=== PATIENT | female | born 1940 | race Caucasian/White ===

== ENCOUNTER 2019-09-20 19:41 | Emergency (ER) | payer MEDICARE, SELFPAY | END 2019-09-20 22:17 | disposition home or self-care (01) | PROVIDERS: Emergency Provider Emergency Medicine; Family Provider Nurse Practitioner; Visit Provider Emergency Medicine | DX: S02.85XA Fracture of orbit, unspecified, initial encounter for closed fracture (principal); W19.XXXA Unspecified fall, initial encounter; Y92.009 Unspecified place in unspecified non-institutional (private) residence as the place of occurrence of the external cause; I10 Essential (primary) hypertension; Z86.73 Personal history of transient ischemic attack (TIA), and cerebral infarction without residual deficits | CPT/HCPCS: 70450; 70486; 72125; 99283 ==

== ENCOUNTER → 2019-10-13 15:55 | Outpatient (BNVA) | payer MEDICARE, SELFPAY | PROVIDERS: Family Provider Nurse Practitioner; PCP Nurse Practitioner; Visit Provider Nurse Practitioner | DX: F43.23 Adjustment disorder with mixed anxiety and depressed mood (principal); R05 Cough; I83.93 Asymptomatic varicose veins of bilateral lower extremities; J01.90 Acute sinusitis, unspecified | CPT/HCPCS: 87804 ==

== ENCOUNTER 2021-01-14 08:47 | Emergency (ER) | payer MEDICARE, SELFPAY ==
[2021-01-14 08:54] VITALS: BP 210/113; PULSE 108; RESP 18; TEMP 36.8; O2SAT 98; BMI 28.3
--- NOTE | 2021-01-14 09:04 | W.ED.HEATRA ---
HPI - Head Injury General: Chief complaint: Wound/Laceration Stated complaint: HEAD LAC S/P FALL Time Seen by Provider: 01/14/21 08:49 History of Present Illness: HPI Narrative: 80-year-old female states that she was walking into [facility] with her hands full. She went to open the door and fell backwards. She denies any lightheadedness or dizziness. She fell on the concrete. She denies any blurry vision. She states the pain is a 1/10. She denies any nausea vomiting. No pain or burning with urination. No diarrhea or constipation. No abdominal pain. No symptoms leading up to this fall. This occurred at approximately 7:50 AM. MD Complaint: head injury and fall Onset (ago): hour(s) (This occurred at 7:50 AM.) Mechanism of Injury: fall Place: other ([facility]) Loss of Consciousness: no Location of injury: occipital Severity: mild Severity scale (1-10): 1 Quality: sharp Radiation: none Other Injuries: none Associated symptoms: Reports no associated symptoms and other; Deny amnesia, confusion, nausea, neck pain, numbness, tingling, vertigo, visual changes, vomiting or weakness Review of Systems Const: Denies: fever(s), chills, body aches, change in appetite or diaphoresis Eyes: Denies: change in vision or blurry vision Card: Denies: chest pain Resp: Denies: dyspnea GI: Denies: abdominal pain, nausea or vomiting : Denies: difficulty voiding or dysuria Musc: Denies: neck pain or back pain Skin/Breast: Reports: new lesions (Bleeding from the back of the scalp.) and other Neuro: Reports: headache(s) (Current chief complaint of head injury secondary to fall.) and frequent falls (Patient states she has fallen on a number of occasions. 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 Uncontrolled hypertension Varicose veins of legs Surgical History History of cataract surgery right eye : 01/2018 History of varicose vein ligation and stripping bilateral 5 different procedures Family History Mother Diabetes Heart disease Brother Diabetes Heart disease Cancer colon Social History Smoking and tobacco status: never smoked Smoking risk assessment/counseling performed?: No Alcohol intake: never Desire information about alcohol rehabilitation?: No Counseling given: No Desire information about substance/drug rehabilitation?: No Counseling given: No Adopted: No Caregiver/support person: No Lives independently: Yes Household members: spouse Housing: House Marital status: Number of children: 2 service: No Current occupational status: unemployed and retired Pets and animals: Yes Pets & animals: dog(s) History of recent travel: No Current gender identity: Female Physical Exam Narrative: EXAM NARRATIVE: 80-year-old female appears in no acute distress. She fell backwards and has bleeding to the back of her head. Const: COMMON NORMALS: no acute distress, patient oriented x3, no limitations, healthy appearing, alert and well nourished GENERAL APPEARANCE: cooperative, comfortable, well kempt and well developed HENMT: FACE & SINUS: normal facial exam Eye: COMMON NORMALS: EOMs intact bilaterally Neck/C-Spine: COMMON NORMALS: full ROM, supple, no meningeal signs and no JVD GENERAL: Yes normal visual inspection, Yes trachea midline, No anterior neck swelling and No tender Resp: COMMON NORMALS: normal respiratory effort, No retractions, No use of accessory muscles and clear to auscultation bilaterally EFFORT & INSPECTION: Yes able to speak in complete sentences, Yes symmetric chest movement and No respiratory distress AUSCULTATION: clear to auscultation bilaterally Cardio: COMMON NORMALS: no JVD, regular rate, regular rhythm and Peripheral pulses 2+ throughout RATE: regular rate RHYTHM: regular rhythm HEART SOUNDS: Murmur heart sound present PERIPHERAL PULSES: Peripheral pulses 2+ throughout Neuro: COMMON NORMALS: patient oriented x3 SENSORIUM/ORIENTATION: Yes alert MENINGEAL SIGNS: Yes no meningeal signs Psych: APPEARANCE: Yes well kempt Skin: SKIN IMAGES (FEMALE): 1. Scalp abrasion with small punctate lesion with minimal bleeding noted. TRAUMA: abrasion and puncture Course Vital Signs: Vital signs: Vital Signs Temperature 98.2 F 01/14/21 08:54 Pulse Rate 93 01/14/21 11:06 Respiratory Rate 18 01/14/21 11:06 Blood Pressure 162/89 01/14/21 11:06 Pulse Oximetry 95 01/14/21 11:06 Discharge Plan Discharge Patient Disposition: Home Clinical Impression: Uncontrolled hypertension, Abrasion Head injury Qualifiers: Encounter type: initial encounter Qualified Code(s): S09.90XA - Unspecified injury of head, initial encounter Condition: Stable Prescriptions: No Action aspirin [Adult Low Dose Aspirin] 81 mg tablet,delayed release (DR/EC) 81 mg PO QDAY RF: 0 guaifenesin [Tussin] 400 mg tablet 400 mg PO TID PRN (Reason: cough) Qty: 20 RF: 0 amlodipine 5 mg tablet 5 mg PO QDAY Qty: 30 RF: 2 escitalopram oxalate [Lexapro] 10 mg tablet 10 mg PO QDAY Qty: 30 RF: 2 Discharge Orders: Discharge ED (Routine); Ordered 01/14/21 Ordered By: Tesfaye Tijerina Referrals: Roselyn Jo, TRANSPORT CONDUCTOR-C [Primary Care Provider] - Discharge Diet: Advance as tolerated Discharge Activity: Limit activity as instructed Patient Instructions: Opioid Safety Activity Restrictions/Additional Instructions: Please have your family monitor you for head injury precautions over the next 24 hours. If there are any significant changes you need to return to the ER immediately. Coding Level of Care Code ED Scrap Sorter for Dontae Fwrosmery Exam Detailed
[2021-01-14 10:09] VITALS: BP 179/99
[2021-01-14] MEDS: cloNIDine 0.1 mg Tablet PO (10:09)
[2021-01-14 11:06] VITALS: BP 162/89; PULSE 93; RESP 18; O2SAT 95
== END 2021-01-14 11:10 | disposition home or self-care (01) ==
PROVIDERS: Emergency Provider Emergency Medicine; PCP Nurse Practitioner
DX: S00.01XA Abrasion of scalp, initial encounter (principal); W19.XXXA Unspecified fall, initial encounter; Z79.82 Long term (current) use of aspirin; Z86.73 Personal history of transient ischemic attack (TIA), and cerebral infarction without residual deficits; E78.2 Mixed hyperlipidemia; I10 Essential (primary) hypertension
CPT/HCPCS: 99282

== ENCOUNTER 2022-02-21 03:14 | Emergency (ER) | payer MEDICARE, SELFPAY ==
--- NOTE | 2022-02-21 03:19 | XRR_ITS ---
PROCEDURE INFORMATION: Exam: XR Chest Exam date and time: 02/21/2022 3:56 AM Age: 81 years old Clinical indication: Other: Poss CVA; Patient HX: Patient found unresponsive at home. Patient flaccid to RT upper/ower extremity. Aphasic. Hypertensive per EMS. Bruise to left orbit. Last known well time around 0100. ; Additional info: AMS TECHNIQUE: Imaging protocol: XR of the chest. Views: 1 view. COMPARISON: CR Chest 1 [place] [id number] 05/15/2019 12:09 PM FINDINGS: Lungs: Mild interstitial pulmonary edema. Pleural spaces: Unremarkable. No pleural effusion. No pneumothorax. Heart/Mediastinum: Cardiomegaly. Bones/joints: Unremarkable. XR/XR chest 1V portable [id number] IMPRESSION: Cardiomegaly with mild interstitial pulmonary edema.
--- NOTE | 2022-02-21 03:19 | CTR_ITS ---
PROCEDURE INFORMATION: Exam: CT Head Without Contrast Exam date and time: 02/21/2022 3:20 AM Age: 81 years old Clinical indication: Stroke-like symptoms; Speech disturbance; RT upper extremity and RT lower extremity weakness; Additional info: Patient found unresponsive at home. Patient flaccid to RT upper/ower extremity. Aphasic. Hypertensive per EMS. Bruise to left orbit. TECHNIQUE: Imaging protocol: Computed tomography of the head without contrast. Radiation optimization: All CT scans at this facility use at least one of these dose optimization techniques: automated exposure control; mA and/or kV adjustment per patient size (includes targeted exams where dose is matched to clinical indication); or iterative reconstruction. Other technique: STROKE PROTOCOL was implemented. COMPARISON: CT head wo con* [id number] 09/20/2019 8:54 PM RADIATION DOSE METRICS: Total DLP (mGy-cm): 1016.52 FINDINGS: Brain: There is mild parenchymal atrophy and chronic small vessel disease. There is encephalomalacia in the jude from an old lacunar infarct. Old right basal ganglia lacunar infarct. Cerebral ventricles: No ventriculomegaly. Paranasal sinuses: Paranasal sinuses are clear. No air-fluid level. Mastoid air cells: Visualized mastoid air cells are clear. Bones/joints: Unremarkable. No acute fracture. Soft tissues: Unremarkable. Other findings: No acute infarct or hemorrhage. CT/CT head wo con* [id number] IMPRESSION: 1. No acute infarct or hemorrhage. 2. Mild parenchymal atrophy and chronic small vessel disease. ASSESSMENT: ASPECTS ([place] Stroke Program Early CT Score) is 10.
--- NOTE | 2022-02-21 03:19 | ECG_ITS ---
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 Measurements Intervals [place] Rate: 123 P: FL: QRS: 64 QRSD: 90 T: 159 QT: 299 QTc: 428 Interpretive Statements ATRIAL FIBRILLATION WITH RAPID VENTRICULAR RESPONSE VOLTAGE CRITERIA FOR LVH [MEETS CRITERIA IN ONE OF: R(aVL), S(V1), R(V5), R(V5/V6)+S(V1)] ST DEVIATION AND MODERATE T-WAVE ABNORMALITY, CONSIDER LATERAL ISCHEMIA [-0.1+ mV T-WAVE IN I/aVL/V5/V6] Compared to ECG 05/15/2019 19:05:16 Left ventricular hypertrophy now present Sinus rhythm no longer present First degree AV block no longer present T-wave abnormality still present Possible ischemia still present Electronically Signed On 02-21-2022 17:12:58 CDT by Adam Yan M.D. [id number]
[2022-02-21 03:20] VITALS: BP 212/102; PULSE 88; RESP 18; TEMP 36.7; O2SAT 94; BMI 30.7
--- NOTE | 2022-02-21 03:20 | W.ED.NEUROSD ---
HPI - Neuro Symptoms/Deficit General: Chief Complaint: Neuro Symptoms/Deficit Stated Complaint: ams Time Seen by Provider: 02/21/22 03:18 Source: EMS Mode of arrival: EMS Limitations: altered mental status History of Present Illness: 81-year-old female here with EMS per EMS she woke up at 1 went to get out of bed and fell and hit her head patient has not been able to follow any commands since then. Here she does have her eyes open she seems to be flaccid on the right side we will move her left side she is not answering any questions not following any commands at all. Unsure when her last known normal was actually. She does have an abrasion to her left head. She is quite hypertensive. 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 Uncontrolled hypertension Varicose veins of legs Surgical History History of cataract surgery right eye : 01/2018 History of varicose vein ligation and stripping bilateral 5 different procedures Family History Mother Diabetes Heart disease Brother Diabetes Heart disease Cancer colon Social History Smoking and tobacco status: never smoked Smoking risk assessment/counseling performed?: No Alcohol intake: never Desire information about alcohol rehabilitation?: No Counseling given: No Desire information about substance/drug rehabilitation?: No Counseling given: No Adopted: No Caregiver/support person: No Lives independently: Yes Household members: spouse Housing: House Marital status: Number of children: 2 service: No Current occupational status: unemployed and retired Pets and animals: Yes Pets & animals: dog(s) History of recent travel: No Current gender identity: Female NIH stroke score NIHSS: Level Of Consciousness - 1a: 2 Level Of Consciousness Questions - 1b: Neither Correct Level Of Consciousness Commands - 1c: Neither Correct Best Gaze - 2: Normal Visual Burris - 3: No Visual Loss Facial Palsy - 4: Normal Motor Arm Right - 5: No Movement Motor Arm Left - 5: No Drift Motor Leg Right - 6: No Movement Motor Leg Left - 6: No Drift Limb Ataxia - 7: Absent Sensory - 8: Normal Best Language - 9: Mute; Global Aphasia Dysarthia - 10: Severe Dysarthia Extinction And Inattention - 11: 2 Score: Total Score: 21 Physical Exam Const: COMMON NORMALS: negative for patient oriented x3 EXAM LIMITATIONS: altered mental status GENERAL APPEARANCE: ill appearing HENMT: OTHER: abrasion to left forehead Eye: COMMON NORMALS: Equal, round and reactive pupils present and EOMs intact bilaterally PUPIL: Yes Equal, round and reactive pupils present Neck/C-Spine: COMMON NORMALS: full ROM and supple Chest: COMMONS NORMALS: normal inspection of the chest and normal palpation of entire chest wall Resp: COMMON NORMALS: normal respiratory effort, No retractions, No use of accessory muscles and clear to auscultation bilaterally AUSCULTATION: clear to auscultation bilaterally Cardio: COMMON NORMALS: regular rate, regular rhythm and No murmurs present (Cardio) RATE: regular rate RHYTHM: regular rhythm GI: COMMON NORMALS: Normal to inspection, nondistended, normoactive bowel sounds present, Soft to palpation, non-tender and no masses PALPATION: Yes Soft to palpation Extremity: COMMON NORMALS: normal to inspection and full ROM Neuro: COMMON NORMALS: negative for patient oriented x3 OTHER: Patient will not follow any commands right side is flaccid Psych: COMMON NORMALS: negative for mental status grossly normal Skin: COMMON NORMALS: no rashes or lesions noted and no wounds GENERAL SKIN EXAM: no rashes or lesions noted Course Reevaluation(s): Reevaluation #1: Patient has flaccidity to the right side along with altered mental status she is not able to can respond to any my questions and does not follow any commands I am unsure when her actual last known normal was from EMS reports she woke up at 1 and fell she had had a head injury. I have not been able to get a hold of any family at all tried calling and they have not arrived here. Time: 03:46 Reevaluation #2: I was able to speak to grandson who was at the house from his understanding his mother got up at 1 and fell and was unresponsive her last known normal per him he believes when she went to bed at roughly 8 PM he states that his grandpa is on his way here and he still has not arrived. Time: 03:51 Reevaluation #3: Patient's has arrived he states that they went to bed around 9:00 and he had woke up around 2 and found her on the floor last known normal was 9 PM 7 hours ago Time: 04:02 Vital Signs: Vital signs: Vital Signs Temperature 98.1 F 02/21/22 03:20 Pulse Rate 102 H 02/21/22 04:45 Respiratory Rate 18 02/21/22 04:45 Blood Pressure 180/135 02/21/22 04:45 Pulse Oximetry 95 02/21/22 04:45 MDM - Neuro Symptoms/Deficit Medical Decision Making 0405 patient's had a large stroke she does have an M1 occlusion I have called [facility] spoke to transfer and line up worker who is in get neurologist we will try to transfer there for possible clot retrieval as she is not a tPA candidate due to last known normal of 2100 Patient presents here with a very significant stroke with an NIH of [address] angio does show an M1 occlusion. She is not a tPA candidate as her last known normal was 9 PM and she also had a head injury from her fall she is no findings on her CT scan from the injury. She is in A. fib here is likely new onset she is not on any blood thinners. I did speak to neurologist at [facility] and will transfer there for higher level of care as patient could possibly still be a clot retrieval candidate. Did attempt to fly but they are not flying due to the weather will go by ground. Lab Data : 02/21/22 03:40 02/21/22 03:40 Radiology Impressions Chest X-Ray 02/21/22 03:19 IMPRESSION: Cardiomegaly with mild interstitial pulmonary edema. Head CT 02/21/22 03:19 IMPRESSION: 1. No acute infarct or hemorrhage. 2. Mild parenchymal atrophy and chronic small vessel disease. ASSESSMENT: ASPECTS ([place] Stroke Program Early CT Score) is 10. Cervical Spine CT 02/21/22 03:23 IMPRESSION: 1. No fracture. 2. Mild thickening of the interstitial markings in the lung apices consistent with mild edema. Head/Neck CTA 02/21/22 03:23 IMPRESSION: 1. 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 2. Mild parenchymal atrophy and chronic small vessel disease. 3. Mild-moderate focal stenosis of the mid right A1 segment. IMPRESSION: 1. Moderate plaque present in the right carotid bulb and proximal ICA without significant stenosis. 2. Mild proximal right ICA stenosis secondary to plaque formation. REFERENCES: NASCET CRITERIA. The degree of internal carotid artery stenosis is based on NASCET criteria. Normal is no stenosis. Mild is less than 50% stenosis. Moderate is 50-69% stenosis. Severe is 70% to 99% stenosis. Total occlusion is no detectable patent lumen. ADDENDUM: 02/21/22 0406 THIS REPORT CONTAINS FINDINGS THAT MAY BE CRITICAL TO PATIENT CARE. The findings were verbally communicated by me to AALIYAH CHRISTINE via telephone conference at 4:04 AM CDT on 02/21/2022. The findings were acknowledged and understood. Laboratory Results WBC 11.1 10^3/uL (4.0-10.0) H 02/21/22 03:40 RBC 4.65 10^6/uL (4.1-5.3) 02/21/22 03:40 Hgb 13.9 g/dL (11.5-15.3) 02/21/22 03:40 Hct 43.7 % (37.0-47.0) 02/21/22 03:40 MCV 94.0 fl (81-99) 02/21/22 03:40 MCH 29.9 pg (28.0-34.0) 02/21/22 03:40 MCHC 31.8 g/dL (30.0-36.0) 02/21/22 03:40 RDW 12.6 % (12.1-15.1) 02/21/22 03:40 Plt Count 269 10^3/cmm (130-400) 02/21/22 03:40 MPV 9.8 fL (7.4-10.4) 02/21/22 03:40 Neut % (Auto) 73.2 % 02/21/22 03:40 Lymph % (Auto) 17.1 % 02/21/22 03:40 [place] % (Auto) 6.7 % 02/21/22 03:40 Eos % (Auto) 1.9 % 02/21/22 03:40 Baso % (Auto) 0.8 % 02/21/22 03:40 Neut # (Auto) 8.15 10^3/uL (1.8-7.7) H 02/21/22 03:40 Lymph # (Auto) 1.9 10^3/uL (0.8-4.8) 02/21/22 03:40 [place] # (Auto) 0.8 10^3/uL (0.2-0.9) 02/21/22 03:40 Eos # (Auto) 0.2 10^3/uL (0.0-0.8) 02/21/22 03:40 Baso # (Auto) 0.1 10^3/uL (0.0-0.1) 02/21/22 03:40 Nucleated RBC % (auto) 0 % 02/21/22 03:40 Nucleated RBCs # 0.0 /100WBC 02/21/22 03:40 PT 13.70 SECONDS (12.1-14.9) 02/21/22 03:40 INR 1.02 (0.8-1.2) 02/21/22 03:40 APTT 29.3 SECONDS (23.9-36.7) 02/21/22 03:40 Sodium 142 mmol/L (136-145) 02/21/22 03:40 Potassium 3.4 mmol/L (3.5-5.1) L 02/21/22 03:40 Chloride 103 mmol/L (98-107) 02/21/22 03:40 Carbon Dioxide 26 mmol/L (22-29) 02/21/22 03:40 Anion Gap 16.4 (5-19) 02/21/22 03:40 BUN 15 mg/dL (8-23) 02/21/22 03:40 Creatinine 0.8 mg/dL (0.5-0.9) 02/21/22 03:40 GFR Calculation Not Reportable 02/21/22 03:40 Glucose 139 mg/dL (65-115) H 02/21/22 03:40 POC Glucose 126 mg/dL (70-110) H 02/21/22 03:38 Calculated Osmolality 297 mOsm/kg (285-295) H 02/21/22 03:40 Calcium 9.4 mg/dL (8.5-10.5) 02/21/22 03:40 Total Bilirubin 0.4 mg/dL (0.15-1.2) 02/21/22 03:40 AST 17 U/L (0-32) 02/21/22 03:40 ALT 9 U/L (0-33) 02/21/22 03:40 Alkaline Phosphatase 114 IU/L (35-105) H 02/21/22 03:40 Total Protein 7.3 g/dL (6.6-8.7) 02/21/22 03:40 Albumin 4.2 g/dL (3.5-5.2) 02/21/22 03:40 Globulin 3.1 g/dL (1.3-4.6) 02/21/22 03:40 Urine Color Straw (Yellow) 02/21/22 03:55 Urine Appearance Clear (CLEAR) 02/21/22 03:55 Urine pH 8 (5-7) H 02/21/22 03:55 Ur Specific [place] 1.010 (1.005-1.030) 02/21/22 03:55 Urine Protein Neg (Negative) 02/21/22 03:55 Urine Glucose (UA) Norm (Normal) 02/21/22 03:55 Urine Ketones Negative (Negative) 02/21/22 03:55 Urine Blood Neg (Negative) 02/21/22 03:55 Urine Nitrate Negative (Negative) 02/21/22 03:55 Urine Bilirubin Neg (Negative) 02/21/22 03:55 Prot Sulfosalicylic Acd Negative (Negative) 02/21/22 03:55 Urine Urobilinogen Norm mg/dL (Negative) 02/21/22 03:55 Ur Leukocyte Esterase Negative (Negative) 02/21/22 03:55 Urine Opiates Screen Negative ng/mL (Negative) 02/21/22 03:55 Ur Barbiturates Screen Negative ng/mL (Negative) 02/21/22 03:55 Ur Phencyclidine Scrn Negative ng/mL (Negative) 02/21/22 03:55 Ur Amphetamines Screen Negative ng/mL (Negative) 02/21/22 03:55 U Benzodiazepines Scrn Negative ng/mL (Negative) 02/21/22 03:55 Urine Cocaine Screen Negative ng/mL (Negative) 02/21/22 03:55 U Marijuana (THC) Screen Negative ng/mL (Negative) 02/21/22 03:55 EKG Data EKG 1: I personally reviewed and interpreted this EKG as follows: EKG interpretation date: 02/21/22 EKG interpretation time: 03:42 Interpretation: afib with rvr hr [address] elevation qrs 90 qtc 372 Critical Care Time Critical Care Time: Critical Care Time: Yes Total Critical Care Time: 45 Attestation: The high probability of a clinically significant, sudden or life threatening deterioration of the patient's neuro system(s) required my full and direct attention, intervention and personal management. The critical care time is as shown. This time is in addition to time spent performing any reported procedures but includes the following: [x] Data and vital sign review and interpretation [x] Patient assessment, examination and intervention [x] Documentation [x] Medication orders and management Discharge Plan Discharge Patient Disposition: Xfer Short-Term Hosp Clinical Impression: Cerebrovascular accident Condition: Stable Prescriptions: No Action aspirin [Adult Low Dose Aspirin] 81 mg tablet,delayed release (DR/EC) 81 mg PO QDAY 0RF guaifenesin [Tussin] 400 mg tablet 400 mg PO TID PRN (Reason: cough) Qty: 20 0RF metoprolol tartrate 25 mg tablet 25 mg PO BID 0RF amlodipine 5 mg tablet 5 mg PO QDAY Qty: 30 2RF Referrals: Roselyn oJ FNP-C [Primary Care Provider] - Coding Level of Care Code ED Employment Counselor for Chg Fwd Exam Comprehensive
--- NOTE | 2022-02-21 03:23 | CTR_ITS ---
PROCEDURE INFORMATION: Exam: CT Cervical Spine Without Contrast Exam date and time: 02/21/2022 3:25 AM Age: 81 years old Clinical indication: Injury or trauma; Fall; Blunt trauma; Patient HX: Patient found unresponsive at home. Patient flaccid to RT upper/ower extremity. Aphasic. Hypertensive per EMS. Bruise to left orbit. Last known well time around 0100. TECHNIQUE: Imaging protocol: Computed tomography images of the cervical spine without contrast. Radiation optimization: All CT scans at this facility use at least one of these dose optimization techniques: automated exposure control; mA and/or kV adjustment per patient size (includes targeted exams where dose is matched to clinical indication); or iterative reconstruction. 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 Minimal anterolisthesis of C6 on C7 secondary to facet degeneration. The dens is intact. The lateral masses of C1 are symmetric. No fracture. Discs/Spinal canal/Neural foramina: Craniocervical articulation is normal. Atlantodental interval and prevertebral soft tissues are normal. Severe intervertebral disc space narrowing at C5-C6 and C6-C7. Lungs: Mild thickening of the interstitial markings in the lung apices consistent with mild edema. Soft tissues: Unremarkable. CT/CT cervical spin wo con* [id number] IMPRESSION: 1. No fracture. 2. Mild thickening of the interstitial markings in the lung apices consistent with mild edema.
--- NOTE | 2022-02-21 03:23 | CTR_ITS ---
PROCEDURE INFORMATION: Exam: CT Angiography Head With Contrast, Arteriography Exam date and time: 02/21/2022 3:32 AM Age: 81 years old Clinical indication: Stroke-like symptoms; Speech disturbance; RT upper extremity and RT lower extremity weakness; Additional info: Patient found unresponsive at home. Patient flaccid to RT upper/ower extremity. Aphasic. Hypertensive per EMS. Bruise to left orbit. Last known well time around 0100. TECHNIQUE: Imaging protocol: Computed tomography angiography of the head with contrast. Exam focused on the arteries. 3D rendering (Not supervised by radiologist): MIP and/or 3D reconstructed images were created by the technologist. Radiation optimization: All CT scans at this facility use at least one of these dose optimization techniques: automated exposure control; mA and/or kV adjustment per patient size (includes targeted exams where dose is matched to clinical indication); or iterative reconstruction. Contrast material: VISI 320; Contrast volume: 65 ml; Contrast route: INTRAVENOUS (IV); COMPARISON: CT head wo con* [id number] 02/21/2022 3:20 AM RADIATION DOSE METRICS: Total DLP (mGy-cm): 1859.24 FINDINGS: ANTERIOR CIRCULATION: Right internal carotid artery: Unremarkable. Intracranial segment is patent with no significant stenosis. No aneurysm. Right middle cerebral artery: Unremarkable. No occlusion or significant stenosis. No aneurysm. Right anterior cerebral artery: Mild-moderate focal stenosis of the mid right A1 segment. Left internal carotid artery: Unremarkable. Intracranial segment is patent with no significant stenosis. No aneurysm. 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 Left anterior cerebral artery: Unremarkable. No occlusion or significant stenosis. No aneurysm. POSTERIOR CIRCULATION: Right vertebral artery: Unremarkable. No occlusion or significant stenosis. No aneurysm. Left vertebral artery: Unremarkable. No occlusion or significant stenosis. No aneurysm. Basilar artery: Unremarkable. No occlusion or significant stenosis. No aneurysm. Right posterior cerebral artery: Unremarkable. No occlusion or significant stenosis. No aneurysm. Left posterior cerebral artery: Unremarkable. No occlusion or significant stenosis. No aneurysm. Brain: There is mild parenchymal atrophy and chronic small vessel disease. There is mild parenchymal atrophy and chronic small vessel disease. Cerebral ventricles: No ventriculomegaly. Bones/joints: Unremarkable. No acute fracture. Soft tissues: Unremarkable. PROCEDURE INFORMATION: Exam: CT Angiography Neck With Contrast Exam date and time: 02/21/2022 3:32 AM Age: 81 years old Clinical indication: Stroke-like symptoms; Speech disturbance; RT upper extremity and RT lower extremity weakness; Additional info: Patient found unresponsive at home. Patient flaccid to RT upper/ower extremity. Aphasic. Hypertensive per EMS. Bruise to left orbit. Last known well time around 0100. TECHNIQUE: Imaging protocol: Computed tomography angiography of the neck with contrast. 3D rendering (Not supervised by radiologist): MIP and/or 3D reconstructed images were created by the technologist. Radiation optimization: All CT scans at this facility use at least one of these dose optimization techniques: automated exposure control; mA and/or kV adjustment per patient size (includes targeted exams where dose is matched to clinical indication); or iterative reconstruction. Contrast material: VISI 320; Contrast volume: 65 ml; Contrast route: INTRAVENOUS (IV); COMPARISON: CT cervical spin wo con* [id number] 02/21/2022 3:25 AM RADIATION DOSE METRICS: Total DLP (mGy-cm): 1859.24 FINDINGS: Right common carotid artery: Moderate plaque present in the right carotid bulb and proximal ICA without significant stenosis. Right internal carotid artery: Mild proximal right ICA stenosis secondary to plaque formation. Right external carotid artery: No occlusion or stenosis of the origin. Left common carotid artery: No stenosis. No dissection or occlusion. Left internal carotid artery: No stenosis of the extracranial segment. No dissection or occlusion. Left external carotid artery: No occlusion or stenosis of the origin. Right vertebral artery: No stenosis. No dissection or occlusion. Left vertebral artery: No stenosis. No dissection or occlusion. Aorta: There is moderate to severe atherosclerosis of the aortic arch with large amounts of plaque present. Soft tissues: Normal. No significant soft tissue swelling. Bones/joints: No acute fracture. CT/CT angio headneck* [id number] IMPRESSION: 1. 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 2. Mild parenchymal atrophy and chronic small vessel disease. 3. Mild-moderate focal stenosis of the mid right A1 segment. IMPRESSION: 1. Moderate plaque present in the right carotid bulb and proximal ICA without significant stenosis. 2. Mild proximal right ICA stenosis secondary to plaque formation. REFERENCES: NASCET CRITERIA. The degree of internal carotid artery stenosis is based on NASCET criteria. Normal is no stenosis. Mild is less than 50% stenosis. Moderate is 50-69% stenosis. Severe is 70% to 99% stenosis. Total occlusion is no detectable patent lumen.
[2022-02-21] MEDS: iodixanol 320 mg/mL 100mL Btl IV (03:42)
[2022-02-21 03:53] LABS: Basophils # 0.1 10^3/uL (0.0-0.1); Basophils % 0.8 %; Eosinophils # 0.2 10^3/uL (0.0-0.8); Eosinophils % 1.9 %; Hematocrit 43.7 % (37.0-47.0); Hemoglobin 13.9 g/dL (11.5-15.3); Lymphocytes # 1.9 10^3/uL (0.8-4.8); Lymphocytes % 17.1 %; Mean Corpuscular HGB Conc 31.8 g/dL (30.0-36.0); Mean Corpuscular Hemoglobin 29.9 pg (28.0-34.0); Mean Platelet Volume 9.8 fL (7.4-10.4); Monocytes # 0.8 10^3/uL (0.2-0.9); Monocytes % 6.7 %; Neutrophils # 8.15 10^3/uL (1.8-7.7); Neutrophils % 73.2 %; Nucleated Red Blood Cells % 0 %; Platelet Count 269 10^3/cmm (130-400); Red Blood Count 4.65 10^6/uL (4.1-5.3); Red Cell Distribution Width 12.6 % (12.1-15.1); White Blood Count 11.1 10^3/uL (4.0-10.0)
[2022-02-21 03:59] LABS: Glucose Point of Care 126 mg/dL (70-110)
[2022-02-21 04:05] LABS: INR 1.02 (0.8-1.2)
[2022-02-21 04:06] LABS: Partial Thromboplastin Time 29.3 SECONDS (23.9-36.7)
[2022-02-21 04:09] LABS: Add Urine Microscopic? NO; Charge for UA Resulting for Rev
[2022-02-21 04:15] LABS: Alanine Aminotransferase 9 U/L (0-33); Albumin Level 4.2 g/dL (3.5-5.2); Alkaline Phosphatase 114 IU/L (35-105); Anion Gap 16.4 (5-19); Aspartate Amino Transferase 17 U/L (0-32); Blood Urea Nitrogen 15 mg/dL (8-23); Calcium 9.4 mg/dL (8.5-10.5); Carbon Dioxide 26 mmol/L (22-29); Chloride 103 mmol/L (98-107); Globulin 3.1 g/dL (1.3-4.6); Glucose 139 mg/dL (65-115); Osmolality Calculated 297 mOsm/kg (285-295); Potassium 3.4 mmol/L (3.5-5.1); Sodium 142 mmol/L (136-145); Total Bilirubin 0.4 mg/dL (0.15-1.2); Total Protein 7.3 g/dL (6.6-8.7)
[2022-02-21 04:16] LABS: Bilirubin Urine Neg (Negative); Blood Urine Neg (Negative); Glucose Urine UA Norm (Normal); Ketones Urine Negative (Negative); Leukocyte Esterase Urine Negative (Negative); Nitrate Urine Negative (Negative); Protein Urine Neg (Negative); Sulfosalicylic Acid Urine Negative (Negative); Urine Appearance Clear (CLEAR); Urine Color Straw (Yellow); Urobilinogen Urine Norm (Negative); pH Urine 8 (5-7)
[2022-02-21 04:20] LABS: Amphetamines Screen Urine Negative (Negative); Barbiturates Screen Urine Negative (Negative); Benzodiazepines Screen Urine Negative (Negative); Cocaine Screen Urine Negative (Negative); Opiate Screen Urine Negative (Negative); PCP Screen Urine Negative (Negative); THC Screen Urine Negative (Negative)
[2022-02-21 04:45] VITALS: BP 180/135; PULSE 102; RESP 18; O2SAT 95
[2022-02-21] MEDS: aspirin 300 mg Supp PR (05:13)
== END 2022-02-21 05:15 | disposition short-term general hospital (02) ==
PROVIDERS: Emergency Provider Emergency Medicine; PCP Nurse Practitioner
DX: I63.50 Cerebral infarction due to unspecified occlusion or stenosis of unspecified cerebral artery (principal); I10 Essential (primary) hypertension; R29.721 NIHSS score 21; Z86.73 Personal history of transient ischemic attack (TIA), and cerebral infarction without residual deficits; Z79.82 Long term (current) use of aspirin
CPT/HCPCS: 36416; 70450; 70496; 70498; 71045; 72125; 80053; 80306; 81003; 82962; 85025; 85610; 85730; 93005; 99285; Q9967